=== PATIENT | female | born 1940 | race Caucasian/White ===

== ENCOUNTER 2017-03-13 09:08 | Emergency (ER) | payer MEDICARE ==
[~2017-03-13] VITALS: Ht 170.2 cm; Wt 78.5 kg
[2017-03-13 10:40] LABS: PATH.CAST-FLAG NOT PRESENT; SPERM-FLAG NOT PRESENT; SRC-FLAG NOT PRESENT; XTAL-FLAG NOT PRESENT; YLC-FLAG NOT PRESENT
[2017-03-13 11:16] LABS: ASPARTATE AMINO TRANSFERASE 18 U/L (15-37); BLOOD UREA NITROGEN 24 mg/dL (7-18); C-REACTIVE PROTEIN, QUANT 0.11 mg/dL (0.02-0.49)
[2017-03-13 12:30] VITALS: BP 170/62
== END 2017-03-13 12:35 | disposition home or self-care (01) ==
LOC: ED 10:20
DX: R51 Headache (principal); I10 Essential (primary) hypertension; F17.200 Nicotine dependence, unspecified, uncomplicated
CPT/HCPCS: 36415; 70450; 71010; 80053; 81001; 83605; 84145; 84443; 85025; 85651; 86140; 87040; 99285

== ENCOUNTER → 2017-04-10 | Outpatient (CLI) | payer MEDICARE | END | disposition home or self-care (01) | LOC: CFH 14:21 | PROVIDERS: ATTEND Ophthalmology | DX: H57.8 Other specified disorders of eye and adnexa (principal); H02.535 Eyelid retraction left lower eyelid; H02.135 Senile ectropion of left lower eyelid | CPT/HCPCS: 70543 ==

== ENCOUNTER → 2017-07-09 | Outpatient (CLI) | payer MEDICARE ==
[2017-07-09 15:32] LABS: HEMATOCRIT 39.1 % (34.6-47.8); HEMOGLOBIN 13.3 g/dL (11.7-16.4); WHITE BLOOD COUNT 6.3 x10^3/uL (3.4-10)
[2017-07-09 15:37] LABS: BLOOD UREA NITROGEN 30 mg/dL (7-18)
== END | disposition home or self-care (01) ==
LOC: CFH 13:27
PROVIDERS: ATTEND Ophthalmology
DX: H02.535 Eyelid retraction left lower eyelid (principal); H02.135 Senile ectropion of left lower eyelid; I11.0 Hypertensive heart disease with heart failure; I50.9 Heart failure, unspecified
CPT/HCPCS: 36415; 80048; 85025

== ENCOUNTER → 2019-01-19 | Outpatient (CLI) | payer MEDICARE | END | disposition home or self-care (01) | LOC: CFH 09:06 | DX: M85.88 Other specified disorders of bone density and structure, other site (principal); N95.9 Unspecified menopausal and perimenopausal disorder | CPT/HCPCS: 77080 ==

== ENCOUNTER 2019-02-26 09:22 | Inpatient (IN) | payer MEDICARE ==
[~2019-02-26] VITALS: Ht 170.2 cm; Wt 74.1 kg
--- NOTE | 2019-02-26 09:40 | NUR ---
PT TO ROOM AT THIS TIME
--- NOTE | 2019-02-26 09:55 | NUR ---
78 Y/O FEMALE PRESENTS TO ED WITH C/O COUGH. PER PT "I'VE HAD A COUGH FOR 3 WEEKS AND IT'S GOTTEN WORSE. YOU CAN HEAR MY COUGH!" PT PLACED IN GOWN. REFUSING BLANKET AT THIS TIME. PT PLACED ON CONT PULSE OX,NIBP. NO C/O N/V/D, BLANK DANG, SOB.
--- NOTE | 2019-02-26 09:59 | NUR ---
STEVEN REPORT RECEIVED FROM KELI DENISE. ASSUMED CARE OF PT. PT CURRENTLY RESTING ON GURNEY. NAD NOTED. SKIN PWD. RESP EVEN AND UNLABORED. PT ABLE TO SPEAK IN FULL 7-10 WORD SENTENCES W/O DIFFICULTY. PT AO X 4. PT ON CONT BP, CARDIAC AND O2 MONITORS. CALL LIGHT WITHIN REACH. WILL CONT TO MONITOR PT.
[2019-02-26] MEDS ORDERED: ALBUTEROL/IPRATROPIUM 2.5MG/0.5MG, 3 ML NPPB ONE ×2 (10:30→13:00)
--- NOTE | 2019-02-26 10:45 | NUR ---
PT CURRENTLY RESTING ON GURNEY. NAD NOTED. SKIN PWD. RESP EVEN AND EQUAL. OCCASIONAL DRY COUGH NOTED. PT ABLE TO SPEAK IN FULL 7-10 WORD SENTENCES W/O DIFFICULTY. PT AO X 4. PT ON CONT BP, CARDIAC AND O2 MONITORS. PT AWARE WE ARE WAITING FOR LAB/IMAGING RESULTS. PT PROVIDED WITH WATER WITH OKAY BY OJ RASCON. PT DENIES OTHER NEEDS. CALL LIGHT WITHIN REACH. WILL CONT TO MONITOR PT.
[2019-02-26] MEDS ORDERED: ALBUTEROL/IPRATROPIUM 2.5MG/0.5MG, 3 ML ONE (10:48)
--- NOTE | 2019-02-26 11:34 | NUR ---
PT CURRENTLY RESTING ON GURNEY. NAD NOTED. SKIN PWD. RESP EVEN AND UNLABORED. PT ABLE TO SPEAK IN FULL 7-10 WORD SENTENCES W/O DIFFICULTY. PT AO X 4. PT ON CONT BP, CARDIAC AND O2 MONITORS. CALL LIGHT WITHIN REACH. WILL CONT TO MONITOR PT.
[2019-02-26 11:42] LABS: ALBUMIN 3.5 g/dL (3.4-5.0); ANION GAP 7 mmol/L (5-15); CALCIUM 8.9 mg/dL (8.5-10.1); CHLORIDE 100 mmol/L (98-107); CREATININE 1.08 mg/dL (0.55-1.02)
[2019-02-26 11:43] LABS: BASOPHILS # (AUTO) 0.01 x10^3/uL (0-0.1); BASOPHILS % (AUTO) 0 % (0-1); EOSINOPHILS # (AUTO) 0.02 x10^3/uL (0-0.4); EOSINOPHILS % (AUTO) 0 % (1-7); LYMPHOCYTES # (AUTO) 1.27 x10^3/uL (1-3.4); LYMPHOCYTES % (AUTO) 9 % (22-44); MD NO; MEAN CORPUSCULAR HEMOGLOBIN 31.7 pg (27.0-34.8); MEAN CORPUSCULAR HGB CONC 33.7 g/dL (32.4-35.8); MEAN CORPUSCULAR VOLUME 94.2 fL (80-100); MEAN PLATELET VOLUME 8.3 fL (7.4-10.4); MONOCYTES # (AUTO) 0.91 x10^3/uL (0.2-0.8); MONOCYTES % (AUTO) 7 % (2-9); NEUTROPHILS # (AUTO) 11.54 x10^3/uL (1.8-6.8); NEUTROPHILS % (AUTO) 84 % (42-75); PLATELET COUNT 222 x10^3/uL (130-400); RED CELL DISTRIBUTION WIDTH 13.4 % (9.6-15.2)
[2019-02-26 11:45] LABS: TROPONIN I < 0.015 ng/mL (0.000-0.045)
--- NOTE | 2019-02-26 12:30 | NUR ---
PT UP TO RESTROOM. STEADY UPON AMBULATION. NAD NOTED. SKIN PWD. RESP EVEN AND EQAUL. OCCAISIONAL DRY COUGH NOTED. PT ABLE TO SPEAK IN FULL 7-10 WORD SENTENCES W/O DIFFICULTY. PT AO X 4. PT ON CONT BP, CARDIAC AND O2 MONITORS. PT DENIES OTHER NEEDS AT THIS TIME. CALL LIGHT WITHIN REACH. WILL CONT TO MONITOR PT.
[2019-02-26] MEDS ORDERED: CEFTRIAXONE PMX 1GM/50ML 50 ML IVPB ONE (13:00)
[2019-02-26] MEDS ORDERED: AZITHROMYCIN 500 MG in SODIUM CHLORIDE 0.9% 250 ML IVPB ONE (13:00)
[2019-02-26] MEDS ORDERED: CEFTRIAXONE PMX 1GM/50ML 50 ML ONE (13:24)
--- NOTE | 2019-02-26 13:30 | NUR ---
PT CURRNETLY RESTING ON GURNEY. NAD NOTED. SKIN PWD. RESP EVEN AND EQAUL. OCCAISIONAL DRY COUGH NOTED. PT ABLE TO SPEAK IN FULL 7-10 WORD SENTENCES W/O DIFFICULTY. PT AO X 4. PT ON CONT BP, CARDIAC AND O2 MONITORS. PT AWARE THAT WE ARE WAITING FOR ADMISSION. PT DENIES OTHER NEEDS AT THIS TIME. CALL LIGHT WITHIN REACH. WILL CONT TO MONITOR PT.
--- NOTE | 2019-02-26 14:30 | NUR ---
PT PROVIDED WITH MEAL TRAY ACCORDING TO DIET ORDERS. PT AO X 4. SKIN PWD. RESP EVEN AND UNLABORED. OCCASIONAL DRY COUGH NOTED BY RN. PT DENIES PAIN/NEEDS AT THIS TIME. PT REFUSED OFFER OF NICOTINE PATCH. CALL LIGHT WITHIN REACH. WILL CONT TO MONITOR PT.
[2019-02-26] MEDS ORDERED: ALBUTEROL/IPRATROPIUM 2.5MG/0.5MG, 3 ML NPPB SCH (15:00)
[2019-02-26 15:04] LABS: HEMOGLOBIN A1C 5.9 % (4.2-6.3)
[2019-02-26] MEDS ORDERED: NICOTINE 14MG/24 HR PATCH.TD24 ONE (15:07)
[2019-02-26] MEDS ORDERED: HEPARIN 5,000 UNITS/ML, 1ML ONE (15:07)
[2019-02-26] MEDS: NICOTINE 14MG/24 HR PATCH.TD24 TD SCH (15:09)
[2019-02-26] MEDS: HEPARIN 5,000 UNITS/ML, 1ML SQ SCH ×2 (15:26→22:03)
[2019-02-26] MEDS ORDERED: ACETAMINOPHEN 325 MG TABLET PO PRN (16:30)
[2019-02-26] MEDS: ALBUTEROL/IPRATROPIUM 2.5MG/0.5MG, 3 ML NPPB SCH ×2 (17:19→19:07)
[2019-02-26] MEDS: MONTELUKAST 10 MG TABLET PO SCH (20:36)
[2019-02-26] MEDS: GUAIFENESIN ER 600 MG TABLET PO SCH (20:36)
[2019-02-26] MEDS: FAMOTIDINE 20 MG TABLET PO SCH (20:36)
[2019-02-26] MEDS: SODIUM CHLORIDE FLUSH 10ML SYR IVF SCH (20:36)
[2019-02-26 21:40] VITALS: BP 130/65
[2019-02-27 00:57] VITALS: BP 135/65
[2019-02-27 05:05] LABS: BASOPHILS # (AUTO) 0.03 x10^3/uL (0-0.1); BASOPHILS % (AUTO) 0 % (0-1); EOSINOPHILS # (AUTO) 0.05 x10^3/uL (0-0.4); EOSINOPHILS % (AUTO) 1 % (1-7); LYMPHOCYTES # (AUTO) 1.37 x10^3/uL (1-3.4); LYMPHOCYTES % (AUTO) 16 % (22-44); MD NO; MEAN CORPUSCULAR HEMOGLOBIN 32.5 pg (27.0-34.8); MEAN CORPUSCULAR HGB CONC 34.1 g/dL (32.4-35.8); MEAN CORPUSCULAR VOLUME 95.3 fL (80-100); MEAN PLATELET VOLUME 8.1 fL (7.4-10.4); MONOCYTES # (AUTO) 0.75 x10^3/uL (0.2-0.8); MONOCYTES % (AUTO) 9 % (2-9); NEUTROPHILS # (AUTO) 6.36 x10^3/uL (1.8-6.8); NEUTROPHILS % (AUTO) 74 % (42-75); PLATELET COUNT 212 x10^3/uL (130-400); RED BLOOD COUNT 3.68 x10^6/uL (3.82-5.3); RED CELL DISTRIBUTION WIDTH 13.2 % (9.6-15.2)
[2019-02-27 05:16] LABS: CHLORIDE 108 mmol/L (98-107)
[2019-02-27 05:31] LABS: ALANINE AMINOTRANSFERASE 51 U/L (12-78); ALBUMIN 3.2 g/dL (3.4-5.0); ALKALINE PHOSPHATASE 100 U/L (45-117); ANION GAP 6 mmol/L (5-15); BILIRUBIN,TOTAL 0.6 mg/dL (0.2-1.0); CALCIUM 8.7 mg/dL (8.5-10.1); CREATININE 0.88 mg/dL (0.55-1.02); THYROID STIMULATING HORMONE 0.818 mIU/L (0.358-3.740); TOTAL PROTEIN 7.2 g/dL (6.4-8.2)
[2019-02-27] MEDS: HEPARIN 5,000 UNITS/ML, 1ML SQ SCH ×3 (06:11→21:26)
[2019-02-27] MEDS: ALBUTEROL/IPRATROPIUM 2.5MG/0.5MG, 3 ML NPPB SCH ×4 (07:00→19:00)
[2019-02-27 08:00] VITALS: BP 123/68
[2019-02-27] MEDS: SODIUM CHLORIDE FLUSH 10ML SYR IVF SCH ×2 (09:00→21:26)
[2019-02-27] MEDS: GUAIFENESIN ER 600 MG TABLET PO SCH ×2 (09:33→21:26)
[2019-02-27] MEDS: FAMOTIDINE 20 MG TABLET PO SCH ×2 (09:33→21:26)
[2019-02-27] MEDS: CEFTRIAXONE PMX 1GM/50ML 50 ML IV SCH (09:34)
[2019-02-27] MEDS: AZITHROMYCIN 500 MG in SODIUM CHLORIDE 0.9% 250 ML IV SCH (10:51)
[2019-02-27 13:58] VITALS: BP 121/69
[2019-02-27] MEDS: NICOTINE 14MG/24 HR PATCH.TD24 TD SCH (14:30)
[2019-02-27 19:29] VITALS: BP 122/71
[2019-02-27] MEDS: MONTELUKAST 10 MG TABLET PO SCH (21:26)
[2019-02-28 00:57] VITALS: BP 118/66
[2019-02-28] MEDS: HEPARIN 5,000 UNITS/ML, 1ML SQ SCH (06:18)
[2019-02-28 07:23] VITALS: BP 138/75
[2019-02-28] MEDS: GUAIFENESIN ER 600 MG TABLET PO SCH (08:52)
[2019-02-28] MEDS: FAMOTIDINE 20 MG TABLET PO SCH (08:52)
[2019-02-28] MEDS: CEFTRIAXONE PMX 1GM/50ML 50 ML IV SCH ×2 (08:53→09:00)
[2019-02-28] MEDS: AZITHROMYCIN 500 MG in SODIUM CHLORIDE 0.9% 250 ML IV SCH (09:00)
[2019-02-28] MEDS: ALBUTEROL/IPRATROPIUM 2.5MG/0.5MG, 3 ML NPPB SCH (10:20)
[2019-02-28 12:48] VITALS: BP 149/77
[2019-02-28] MEDS ORDERED: MONT10TA9 PO (15:01)
[2019-02-28] MEDS ORDERED: ALBU18HF INH (15:01)
[2019-02-28] MEDS ORDERED: GUAI600T31 PO (15:01)
[2019-02-28] MEDS ORDERED: [UNRECOGNIZED DRUG - CODE] PO (15:01)
[2019-02-28] MEDS ORDERED: NICO-486 TD (15:02)
== END 2019-02-28 15:45 | disposition home or self-care (01) | DRG 193 ==
LOC: ED 10:52 → EDIP 14:15 → 4EST 16:00
PROVIDERS: ADMIT Internal Medicine; ATTEND Internal Medicine
DX: J18.1 Lobar pneumonia, unspecified organism (principal); J96.91 Respiratory failure, unspecified with hypoxia; J44.1 Chronic obstructive pulmonary disease with (acute) exacerbation; J44.0 Chronic obstructive pulmonary disease with (acute) lower respiratory infection; I10 Essential (primary) hypertension; F17.210 Nicotine dependence, cigarettes, uncomplicated; F32.9 Major depressive disorder, single episode, unspecified; Z90.710 Acquired absence of both cervix and uterus; Z82.49 Family history of ischemic heart disease and other diseases of the circulatory system
CPT/HCPCS: 36415; 36600; 71046; 80048; 80053; 82040; 82803; 83036; 83605; 83880; 84443; 84484; 85025; 87040; 87070; 87205; 93306; 94640; G0378; J0456; J0696; J1644; J7620; J7050

== ENCOUNTER 2021-02-06 10:32 | Outpatient (CLI) | payer MEDICARE ==
[~2021-02-06 10:32] MED LIST: ALBU18HF INH; GUAI600T31 PO; MONT10TA17 PO; NICO-486 TD; [UNRECOGNIZED DRUG - CODE] PO
== END 2021-02-06 23:59 | disposition home or self-care (01) ==
LOC: RAD 10:32
PROVIDERS: ATTEND Internal Medicine
DX: I65.23 Occlusion and stenosis of bilateral carotid arteries (principal)
CPT/HCPCS: 93880